=== PATIENT | male | born 1990 | race Hispanic/Latino ===

== ENCOUNTER 2020-08-31 21:31 | Emergency (ER) | payer BC ==
[2020-08-31 23:02] LABS: Absolute Lymphocytes (CBC) 2.8 K/uL (0.7-4.9); Hematocrit 45.8 % (39.6-49.0); Lymphocytes % 25.8 % (15.3-44.8); RBC Red Blood Cell Count 5.24 M/uL (4.33-5.43)
[2020-08-31 23:04] LABS: Protime INR 0.96
[2020-08-31 23:17] LABS: BUN Blood Urea Nitrogen 14 mg/dL (7-18); Bicarbonate 30 mmol/L (21-32); Glucose Level 74 mg/dL (74-106); Magnesium 2.4 mg/dL (1.8-2.4); Potassium 3.5 mmol/L (3.5-5.1); Sodium Level 141 mmol/L (136-145); Troponin (Emerg Dept Use Only) < 0.02 ng/mL (0.0-0.045)
--- NOTE | 2020-08-31 23:48 | ER ---
Nurse's Notes [facility] Name: Kamran Cueto Age: 29 yrs Sex: Male : 1990 Arrival Date: 08/31/2020 Time: 21:36 Bed 28 Private MD: Diagnosis: Headache;Elevated blood-pressure reading, without diagnosis of hypertension Presentation: 08/31 21:46 Chief complaint: Patient states: MATTHEWS for 3 days. + SOB at times. No cough/fever. No ll1 N/V/D. Coronavirus screen: Client denies travel out of the [place] in the last 14 days. headache, Client presents with at least one sign or symptom that may indicate coronavirus-19. Standard/surgical mask placed on the client. Ebola Screen: Patient denies travel to an Ebola-affected area in the 21 days before illness onset. Initial Sepsis Screen: Does the patient meet any 2 criteria? HR > 90 bpm. No. Patient's initial sepsis screen is negative. Does the patient have a suspected source of infection? Yes: Other: Headache. Risk Assessment: Do you want to hurt yourself or someone else? Patient reports no desire to harm self or others. Onset of symptoms was August 29, 2020. 21:46 Method Of Arrival: Ambulatory ll1 21:46 Acuity: REBEKA 3 ll1 Historical: - Allergies: 21:49 No Known Allergies; ll1 - PMHx: 21:49 Hypertension; High Cholesterol; ll1 - PSHx: 21:49 None; ll1 - Immunization history:: Flu vaccine is not up to date. - Social history:: Smoking status: Patient denies any tobacco usage or history of. Screenin:08 Abuse screen: Denies threats or abuse. Denies injuries from another. Nutritional ss screening: No deficits noted. Tuberculosis screening: Never had TB. Fall Risk None identified. Assessment: 22:50 General: Appears in no apparent distress. comfortable, Behavior is calm, cooperative. ss General: c/o anxiety. Pain: Complains of pain in top of head Pain currently is 4 out of 10 on a pain scale. Quality of pain is described as aching, Pain began 2-3 days ago. Is continuous. Neuro: Level of Consciousness is awake, alert, obeys commands, Oriented to person, place, time, situation, Speech is normal. Cardiovascular: Capillary refill < 3 seconds is brisk in bilateral fingers. Respiratory: Airway is patent Respiratory effort is even, unlabored, Respiratory pattern is regular, symmetrical. Respiratory: Reports intermittent shortness of breath, or "unable to take a deep breath. GI: Patient currently denies diarrhea, nausea, vomiting. : Denies burning with urination, urinary frequency. EENT: Oral mucosa is moist. Derm: Skin is intact, is healthy with good turgor, Skin is dry, Skin is pink, warm \\T\\ dry. normal. Musculoskeletal: Circulation, motion, and sensation intact. Range of motion: intact in all extremities, Swelling absent. 23:16 Reassessment: took Tylenol [employer] which patient states seems to have helped his headache. ss Pt reports he does not want additional medication at this time. 23:50 Reassessment: Patient appears in no apparent distress at this time. Patient and/or ss family updated on plan of care and expected duration. Pain level reassessed. Patient is alert, oriented x 3, equal unlabored respirations, skin warm/dry/pink. Vital Signs: 21:46 BP 180 / 114; Pulse 111; Resp 18; Temp 98.4; Pulse Ox 100% ; Weight 136.08 kg; Height 5 ll1 ft. 10 in. (177.80 cm); Pain 6/10; 22:58 BP 135 / 76; Pulse 91; Resp 15; Pulse Ox 100% on R/A; Pain 4/10; ss 21:46 Body Mass Index 43.05 (136.08 kg, 177.80 cm) ll1 ED Course: 21:36 Patient arrived in ED. cf2 21:48 Triage completed. ll1 21:49 Arm band placed on Patient placed in an exam room, on a stretcher. ll1 22:03 Jasper Gleason PA is PHCP. cp 22:03 Nghia Lee MD is Attending Physician. cp 22:44 XRAY Chest (1 view) In Process Unspecified. EDMS 22:50 CT Head Brain wo Cont In Process Unspecified. EDMS 22:55 Wendy Esteves, PENG is Primary Nurse. ss 23:00 Inserted saline lock: 20 gauge in left antecubital area, using aseptic technique. Blood ss collected. 23:08 Patient has correct armband on for positive identification. Bed in low position. Call ss light in reach. 23:08 No provider procedures requiring assistance completed. ss 09/01 00:07 IV discontinued, intact, bleeding controlled, No redness/swelling at site. Pressure ss dressing applied. Administered Medications: 10 22:56 Not Given (P"t reports he took some prior to arrival which has helped his headache): Tylenol 650 mg PO once 22:59 Not Given (Hemodynamic Parameters): hydrALAZINE 5 mg IV at calculated rate once; may ss repeat if systolic pressure remains >170 23:50 Drug: TORadol - Ketorolac 15 mg Route: IVP; Site: left antecubital; ss 23:50 Follow up: Response: No adverse reaction; Medication administered at discharge. ss Outcome: 23:47 Discharge ordered by . epi 09/01 00:07 Discharged to home ambulatory. ss Condition: improved Discharge instructions given to patient, Instructed on discharge instructions, follow up and referral plans. medication usage, Demonstrated understanding of instructions, follow-up care. 00:08 Patient left the ED. Signatures: Dispatcher [employer] EDAL Wendy Esteves RN RN ss Jasper Gleaosn PA PA cp Frazier, Celesta cf2 Reji Moses RN RN ll1
--- NOTE | 2020-08-31 23:48 | EDPHYS ---
Physician Documentation [facility] Name: Kamran Cueto Age: 29 yrs Sex: Male : 1990 Arrival Date: 08/31/2020 Time: 21:36 Bed 28 Private MD: ED Physician Nghia Lee HPI: 08/31 22:15 This 29 yrs old Male presents to ER via Ambulatory with complaints of cp Headache, Panic attack, Shortness Of Breath. 22:15 The patient complains of pain to the top of head. The patient describes the headache as cp aching. Onset: The symptoms/episode began/occurred 3 day(s) ago. Associated signs and symptoms: Pertinent positives: shortness of breath, Pertinent negatives: altered mental status, fever, neck stiffness, vision changes, chest pain, abdominal pain. Historical: - Allergies: 21:49 No Known Allergies; ll1 - PMHx: 21:49 Hypertension; High Cholesterol; ll1 - PSHx: 21:49 None; ll1 - Immunization history:: Flu vaccine is not up to date. - Social history:: Smoking status: Patient denies any tobacco usage or history of. ROS: 22:20 Constitutional: Negative for body aches, chills, fever, poor PO intake. cp 22:20 Eyes: Negative for injury, pain, redness, and discharge. cp Exam: 22:25 Constitutional: The patient appears in no acute distress, alert, awake, non-toxic, well cp developed, well nourished, obese. 22:25 Head/Face: Normocephalic, atraumatic. cp 22:25 Eyes: Periorbital structures: appear normal, Pupils: equal, round, and reactive to light and accomodation, Extraocular movements: intact throughout, Conjunctiva: normal, no exudate, no injection, Sclera: no appreciated abnormality, Lids and lashes: appear normal, bilaterally. 22:25 ENT: External ear(s): are unremarkable, Nose: is normal, Mouth: Lips: moist, Oral mucosa: moist, Posterior pharynx: Airway: no evidence of obstruction, patent. 22:25 Neck: ROM/movement: is normal, is supple, without pain, no range of motions limitations. 22:25 Chest/axilla: Inspection: normal, Palpation: is normal, no crepitus, no tenderness. 23:08 ECG was reviewed by the Attending Physician. cp Vital Signs: 21:46 BP 180 / 114; Pulse 111; Resp 18; Temp 98.4; Pulse Ox 100% ; Weight 136.08 kg; Height 5 ll1 ft. 10 in. (177.80 cm); Pain 6/10; 22:58 BP 135 / 76; Pulse 91; Resp 15; Pulse Ox 100% on R/A; Pain 4/10; ss 21:46 Body Mass Index 43.05 (136.08 kg, 177.80 cm) ll1 MDM: 22:12 Patient medically screened. cp 23:37 Test interpretation: by ED physician or midlevel provider: ECG, chest xray negative for cp infiltrates. 08/31 22:13 Order name: Basic Metabolic Panel cp 08/31 22:13 Order name: CBC with Diff; Complete Time: 23:34 cp 08/31 23:34 Interpretation: Reviewed. cp 08/31 22:13 Order name: Magnesium; Complete Time: 23:34 cp 08/31 22:13 Order name: PT-INR; Complete Time: 23:34 cp 08/31 22:13 Order name: Troponin (emerg Dept Use Only); Complete Time: 23:34 cp 08/31 23:34 Interpretation: TROPED < 0.02; Reviewed. cp 08/31 22:14 Order name: Basic Metabolic Panel; Complete Time: 23:34 EDMS 08/31 23:34 Interpretation: Within normal limits. cp 08/31 22:13 Order name: XRAY Chest (1 view) cp 08/31 22:13 Order name: EKG; Complete Time: 22:14 cp 08/31 22:13 Order name: Cardiac monitoring; Complete Time: 22:59 cp 08/31 22:13 Order name: EKG - Nurse/Tech; Complete Time: 23:21 cp 08/31 22:14 Order name: CT Head Brain wo Cont cp 08/31 22:13 Order name: IV Saline Lock; Complete Time: 22:59 cp 08/31 22:13 Order name: Labs collected and sent; Complete Time: 22:59 cp 08/31 22:13 Order name: O2 Per Protocol; Complete Time: 22:59 cp 08/31 22:13 Order name: O2 Sat Monitoring; Complete Time: 22:59 cp EC:08 Rate is 88 beats/min. Rhythm is regular. WI interval is normal. QRS interval is normal. cp QT interval is normal. T waves are Inverted in lead aVR. Interpreted by me. Reviewed by me. Administered Medications: 22:56 Not Given (P"t reports he took some prior to arrival which has helped his headache): ss Tylenol 650 mg PO once 22:59 Not Given (Hemodynamic Parameters): hydrALAZINE 5 mg IV at calculated rate once; may ss repeat if systolic pressure remains >170 23:50 Drug: TORadol - Ketorolac 15 mg Route: IVP; Site: left antecubital; ss 23:50 Follow up: Response: No adverse reaction; Medication administered at discharge. ss Disposition: 09/01 00:43 Co-signature as Attending Physician, Nghia Lee MD. pkl Disposition: 08/31/20 23:47 Discharged to Home. Impression: Headache, Elevated blood-pressure reading, without diagnosis of hypertension. - Condition is Stable. - Discharge Instructions: General Headache Without Cause, How to Take Your Blood Pressure, [id number], DASH Eating Plan, Form - Blood Pressure Record Sheet. - Medication Reconciliation Form, Thank You Letter, Antibiotic Education, Prescription Opioid Use form. - Follow up: Private Physician; When: 2 - 3 days; Reason: Recheck today's complaints. - Problem is new. - Symptoms have improved. Signatures: Dispatcher [employer] EDMS Nghia Lee MD MD pkl Wendy Esteves RN RN ss Jasper Gleason PA PA cp Lewis, Lynsay RN RN ll1 Corrections: (The following items were deleted from the chart) 00:08 08/31 23:47 08/31/2020 23:47 Discharged to Home. Impression: Headache; Elevated ss blood-pressure reading, without diagnosis of hypertension. Condition is Stable. Forms are Medication Reconciliation Form, Thank You Letter, Antibiotic Education, Prescription Opioid Use. Follow up: Private Physician; When: 2 - 3 days; Reason: Recheck today's complaints. Problem is new. Symptoms have improved. cp
[2020-08-31] MEDS ORDERED: KETOROLAC 30 MG/ML INJ ONE (23:59)
[2020-09-01 00:46] VITALS: TEMP 98.4; O2SAT 100
[2020-09-01 00:47] VITALS: BP 135/76
--- NOTE | 2020-09-01 05:56 | EKG ---
Test Date: 2020-08-31 Test Time: 23:08:02 Nuclear Test Technician: MARCY MEASUREMENT RESULTS: Intervals: Rate: 88 UT: 148 QRSD: 84 QT: 338 QTc: 408 [place]: P: 28 UT: 148 QRS: 26 T: 39 INTERPRETIVE STATEMENTS: Normal sinus rhythm Normal ECG No previous ECG available for comparison Electronically Signed On 09-01-20 05:55:28 CDT by Alon George
--- NOTE | 2020-09-01 08:00 | RAD REPORT ---
[facility] 10[facility]44 pm CLINICAL HISTORY: Shortness breath COMPARISON: none FINDINGS: The lungs appear clear of acute infiltrate. The heart is normal size. Left hemidiaphragm is elevated
--- NOTE | 2020-09-01 10:31 | RAD REPORT ---
EXAM DESCRIPTION: CT - Head Brain Wo Cont - 09/01/2020 7:09 am CLINICAL HISTORY: The patient is 29 years old and is Male; elevated blood pressure;Headache TECHNIQUE: Axial computed tomography images of the head/brain without intravenous contrast. Sagitt al and coronal reformatted images were created and reviewed. This CT exam was performed using one o r more of the following dose reduction techniques: automated exposure control, adjustment of the mA and/or kV according to patient size, and/or use of iterative reconstruction technique. COMPARISON: No relevant prior studies available. FINDINGS: BRAIN: Unremarkable. The camacho-white matter differentiation is preserved . No hemorrhag e. No significant white matter disease. No edema. No extra-axial fluid collections. VENTRICLES: Unremarkable. No ventriculomegaly. BONES/JOINTS: No acute fracture. SOFT TISSUES: Unremarkable. SINUSES: Unremarkable as visualized. No acute sinusitis. MASTOID AIR CELLS: Unremarkable as visualized. No mastoid effusion. ORBITS: Unremarkable as visualized. IMPRESSION: No acute intracranial findings. Electronically signed by: Diana Brizuela MD 08/31/2020 10:57 PM CDT Due to temporary technical issues with the PACS/Fluency reporting system, reports are being signed by the in house radiologist without review as a courtesy to ensure prompt reporting. The interpreting r adiologist is fully responsible for the content of the report.
--- OUTSIDE RECORDS SUMMARY | 2020-09-02 17:02 | XMS REPORT | Continuity of Care Document ---
:1990 Author Organization [facility] t Address [address] [place] [id number] Care Team Providers Name Role Phone Unavailable Unavailable Unavailable Problems Condition Condition Condition Status Onset Resolution Last Treating Co mments Source Name Details Category Date Date Treatment Clinician Date Benign Benign Problem Active 2018-11 [facility] essential Essential 0-16 Fami ly hypertensi Hypertensi 00:00: Pr actic on on 00 e Allergies, Adverse Reactions, Alerts This patient has no known allergies or adverse reactions. Social History Smoking Status Start Date Stop Date Source Never Smoker [facility] Medications This patient has no known medications. Immunizations Ordered Immunization Filled Immunization Date Status Commen ts Source Name Name influenza, influenza, 2020-01-06 Completed [facility] injectable, injectable, 10:52:07 Practice quadrivalent, quadrivalent, preservative free preservative free Vital Signs Vital Name Observation Time Observation Value Comments Source BP Diastolic 2020-01-06 00:00:00 82 mm[Hg] [facility] Height 2020-01-06 00:00:00 70 [in_i] [facility] BMI (Body Mass 2020-01-06 00:00:00 39.8 kg/m2 [facility] Family Index) Practice BP Systolic 2020-01-06 00:00:00 138 mm[Hg] [facility] Body Weight 2020-01-06 00:00:00 277.2 [lb_av] [facility] BP Diastolic 2019-09-17 00:00:00 86 mm[Hg] [facility] Height 2019-09-17 00:00:00 70 [in_i] [facility] BMI (Body Mass 2019-09-17 00:00:00 40.7 kg/m2 [facility] Family Index) Practice BP Systolic 2019-09-17 00:00:00 135 mm[Hg] [facility] Body Weight 2019-09-17 00:00:00 283.8 [lb_av] [facility] BP Diastolic 2019-09-10 00:00:00 111 mm[Hg] [facility] Height 2019-09-10 00:00:00 70 [in_i] [facility] BMI (Body Mass 2019-09-10 00:00:00 42.2 kg/m2 [facility] Index) Practice BP Systolic 2019-09-10 00:00:00 165 mm[Hg] [facility] Body Weight 2019-09-10 00:00:00 293.8 [lb_av] [facility] Procedures This patient has no known procedures. Plan of Care Planned Activity Planned Date Details Comments Source Diagnostic Test 2020-01-06 lipid panel, serum [facility] Pending 00:00:00 [code = lipid Practice panel, serum] Diagnostic Test 2020-01-06 CMP, serum or [facility] Pending 00:00:00 plasma [code = CMP, Practice serum or plasma] Diagnostic Test 2020-01-06 CBC w/ auto diff [facility] Pending 00:00:00 [code = CBC w/ auto Practice diff] Diagnostic Test 2020-01-06 [facility]00 plasma [code = TSH, Practice serum or plasma] Diagnostic Test 2020-01-06 urinalysis, [facility] Pending 00:00:00 dipstick [code = Practice urinalysis, dipstick] Diagnostic Test 2020-01-06 HbA1c (hemoglobin [facility] Pending 00:00:00 A1c), blood [code = Practice HbA1c (hemoglobin A1c), blood] Encounters Start End Encounter Admission Attending Care Care Encounter Source Date/Time Date/Time Type Type Clinicians Facility Department ID 2020-01-06 2020-01-06 En[facility] [place] - [id number] [facility] 00:00:00 00:00:00 abhishek Dela Cruz [facility] Tray aparicio MD: [id number] Medical - Prac tic Adriana [facility]STER[facility]JESS[facility]Jorge e [address], [place] [address] , Ph. 2019-09-17 2019-09-17 En[facility] [place] - [id number] [facility] 00:00:00 00:00:00 abhishek Dela Cruz [facility] Tray aparicio MD: [id number] Family Pract[facility] - e Juan [facility] [address], [place] [address] , Ph. 2019-09-10 2019-09-10 Enzo [facility] [place] - [id number] [facility] 00:00:00 00:00:00 [id number], [facility] [address], [place] [address] , Ph. Results Test Description Test Time Test Comments Results Result Comments Source Comprehensive metabolic 2000 panel - Serum or Plasma 2019-08 11:31:00 Test Item Value Reference Range Interpretation Comme nts ALT (test code = ALT) 21 U/L 0-55 AST (test code = AST) 22 U/L 5-34 BUN (test code = BUN) 9.1 mg/dL 8.9-25.0 alk phos (test code = alk phos) 100 unit/L 40-150 glucose (test code = glucose) 86 mg/dL 70-99 albumin (test code = albumin) 4.7 g/dL 3.4-5.1 creatinine (test code = creatinine) 0.83 mg/dL 0.72-1.25 eGFR non- (test code = eGFR non- >60 swiss) total bilirubin (test code = total bilirubin) 0.8 mg/dL 0.2-1.2 eGFR - (test code = eGFR - >60 swiss) sodium (test code = sodium) 140 mEq/L 135-145 potassium (test code = potassium) 4.2 mEq/L 3.5-5.1 chloride (test code = chloride) 106 mmol/L 98-110 total protein (test code = total protein) 7.5 g/dL 6.1-8.2 calcium (test code = calcium) 9.9 mg/dL 8.6-10.4 CO2 (test code = CO2) 24.8 mmol/L 20.0-32.0 anion gap (test code = anion gap) 9 [facility] W Auto Differential panel - [id number] 10:45:00 Test Item Value Reference Range Interpretation Comments WBC (test code = WBC) 7.21 x10*3/?L 4.23-9.07 RBC (test code = RBC) 5.44 10*12/L 4.63-6.08 hemoglobin (test code = 16.20 g/dL 13.70-17.50 hemoglobin) hematocrit (test code = 48.4 % 40.1-51.0 hematocrit) MCV (test code = MCV) 89.0 fL 80.0-100.0 MCH (test code = MCH) 29.8 pg 25.7-32.2 MCHC (test code = MCHC) 33.5 g/dL 32.3-36.5 RDW-SD (test code = RDW-SD) 43.0 fL 35.1-43.9 platelet count (test code = 285.0 k/uL 163.0-337.0 platelet count) MPV (test code = MPV) 10.6 fL 7.5-11.5 neut% (test code = neut%) 59.6 % 34.0-67.9 lymph% (test code = lymph%) 24.3 % 21.8-53.1 mon% (test code = mon%) 12.2 % 5.3-12.2 eos% (test code = eos%) 3.2 % 0.8-7.0 baso% (test code = baso%) 0.7 % 0.2-1.2 neut# (test code = neut#) 4.3 x10*3/?L 1.8-5.4 lymph# (test code = lymph#) 1.8 x10*3/?L 1.3-3.6 mon# (test code = mon#) 0.9 x10*3/?L 0.3-0.8 H eos# (test code = eos#) 0.23 x10*3/?L 0.04-0.54 baso# (test code = baso#) 0.05 x10*3/?L 0.01-0.08 [facility]
== END 2020-09-01 00:08 | disposition home or self-care (01) ==
LOC: ER 21:31
DX: R03.0 Elevated blood-pressure reading, without diagnosis of hypertension (principal)
CPT/HCPCS: 36415; 70450; 71045; 80048; 83735; 84484; 85025; 85610; 93005; 96374; 99284